=== PATIENT | female | born 1975 | race Two or more races ===

== ENCOUNTER 2018-07-07 11:09 | Emergency (ER) | payer BC ==
[2018-07-07 11:15] VITALS: BP 127/88; PULSE 86; TEMP 98; BMI 26.1
[2018-07-07] MEDS ORDERED: METOCLOPRAMIDE HCL INJECTION 10 MG/2 ML VIAL IVPUSH STA (11:22)
[2018-07-07] MEDS ORDERED: SODIUM CHLORIDE 1,000 ML IV ONE (11:22)
--- NOTE | 2018-07-07 11:29 | PDOC ---
History of Present Illness - General History Source: Patient Exam Limitations: No Limitations - History of Present Illness Initial Comments: 43 yo F w a pmh of migraines and kidney stones presents to the ER with a right sided headache which has been ongoing for the past 4 days. She states it feels like her typical migraines but is worse than usual. She states she experienced her classic visual aura of some blurry vision before the migraine started as well as some mild tinnitus before the migraine began. Usually the migraines go away after she takes sumatriptan and amytryptline but this time the migraine has persisted to the point where it is bothering her too much so she came to the ED to be evaluated. She reports this feels the same way all her migraines do in character it is just a bit worse than her usual migraine. She syas the headache was not worst in onset and was not associated with any floaters or a curtain falling over her visual field. She also endorses occasional nausea and one episode of NBNB vomitus on Sunday. She denies any weakness, numbness, tingling, chills, fevers, infections, current blurry vision, neck pain, chest pain, SOB, difficulty breathing, back pain, abdominal pain, dysuria, frequency, urgency, vertigo, or arm/leg swelling. PCP: Elke Ramírez Neurologist: Mario Garcia PSH: Cholecystectomy, lithotripsy, tubal ligation Allergies: Shellfish Social Hx: Denies smoking, drinking, or other substance usage. <Marquise Westbrook - Last Filed: 07/07/18 19:36> <Katherine Acuna - Last Filed: 07/10/18 09:46> - General Chief Complaint: Migraine Headache Stated Complaint: MIGRAINE Time Seen by Provider: 07/07/18 11:10 Past History - Past Medical History COPD: No Other medical history: MIGRAINE - Suicide/Smoking/Psychosocial Hx Smoking History: Never smoked Hx Alcohol Use: No Drug/Substance Use Hx: No <Marquise Westbrook - Last Filed: 07/07/18 19:36> <Katherine Acuna - Last Filed: 07/10/18 09:46> - Past Medical History Allergies/Adverse Reactions: Allergies Allergy/AdvReac Type Severity Reaction Status Date / Time No Known Allergies Allergy Verified 07/07/18 11:10 Home Medications: Ambulatory Orders Amitriptyline HCl [Elavil -] 10 mg PO HS 07/07/18 Metoclopramide HCl [Reglan] 10 mg PO TID PRN 7 Days #12 tablet 07/07/18 Sumatriptan 20 mg NS ASDIR 07/07/18 Review of Systems - Review of Systems Able to Perform ROS?: Yes Comments:: CONSTITUTIONAL: Absent: fever, no chills, no fatigue EYES: Present: Visual changes ENT: Absent: ear pain, no sore throat CARDIOVASCULAR: Absent: chest pain, no palpitations RESPIRATORY: Absent: cough, no SOB GI: Present: Nausea, vomiting Absent: abdominal pain, no constipation, no diarrhea GENITOURINARY: Absent: dysuria, no frequency, no hematuria MUSKULOSKELETAL: Absent: back pain, no arthralgia, no myalgia SKIN: Absent: rash NEURO: Present: headache <Marquise Westbrook - Last Filed: 07/07/18 19:36> *Physical Exam - Vital Signs Last Vital Signs Temp Pulse Resp BP Pulse Ox 98.0 F 86 16 127/88 100 07/07/18 11:10 07/07/18 11:10 07/07/18 11:10 07/07/18 11:10 07/07/18 11:10 - Physical Exam Comments: GENERAL: Well developed, well nourished. Awake and alert. No acute distress. HEENT: Normocephalic, atraumatic. PERRLA, EOMI. No conjunctival pallor. Sclera are non- icteric. Moist mucous membranes. Oropharynx is clear. NECK: Supple. Full ROM. No thyromegaly. No lymphadenopathy. CARDIOVASCULAR: Regular rate and rhythm. No murmurs, rubs, or gallops. Distal pulses are 2+ and symmetric. PULMONARY: No evidence of respiratory distress. Lungs clear to auscultation bilaterally. No wheezing, rales or rhonchi. ABDOMINAL: Soft. Non-tender. Non-distended. No rebound or guarding. Normoactive bowel sounds. MUSCULOSKELETAL Normal range of motion at all joints. No bony deformities or tenderness. No CVA tenderness. EXTREMITIES: No cyanosis. No clubbing. No edema. No calf tenderness. SKIN: Warm and dry. Normal capillary refill. No rashes. No jaundice. NEUROLOGICAL: Alert, awake, appropriate. Cranial nerves 2-12 intact. In creased pain with sensation on the right side of her face throughout all branches of the trigeminal nerve. No sensation deficits. No deficits to light touch in the upper extremities and lower extremities. No motor deficits in the in face, upper extremities and lower extremities. Normal speech. Gait is normal without ataxia. PSYCHIATRIC: Cooperative. Good eye contact. Appropriate mood and affect. <Marquise Westbrook - Last Filed: 07/07/18 19:36> - Vital Signs Last Vital Signs Temp Pulse Resp BP Pulse Ox 98.0 F 86 16 127/88 100 07/07/18 11:10 07/07/18 11:10 07/07/18 11:10 07/07/18 11:10 07/07/18 11:10 <Katherine Acuna - Last Filed: 07/10/18 09:46> Moderate Sedation - Procedure Monitoring Vital Signs: Procedure Monitoring Vital Signs Temperature 98.0 F 07/07/18 11:10 Pulse Rate 86 07/07/18 11:10 Respiratory Rate 16 07/07/18 11:10 Blood Pressure 127/88 07/07/18 11:10 O2 Sat by Pulse Oximetry (%) 100 07/07/18 11:10 <Marquise Westbrook - Last Filed: 07/07/18 19:36> - Procedure Monitoring Vital Signs: Procedure Monitoring Vital Signs Temperature 98.0 F 07/07/18 11:10 Pulse Rate 86 07/07/18 11:10 Respiratory Rate 16 07/07/18 11:10 Blood Pressure 127/88 07/07/18 11:10 O2 Sat by Pulse Oximetry (%) 100 07/07/18 11:10 <Katherine Acuna - Last Filed: 07/10/18 09:46> ED Treatment Course - LABORATORY CBC & Chemistry Diagram: 07/07/18 11:38 07/07/18 11:38 <Marquise Westbrook - Last Filed: 07/07/18 19:36> - LABORATORY CBC & Chemistry Diagram: 07/07/18 11:38 07/07/18 11:38 - ADDITIONAL ORDERS Additional order review: 07/07/18 11:38 RBC 4.65 MCV 85.7 MCHC 32.8 RDW 12.4 MPV 8.1 Neutrophils % 70.5 Lymphocytes % 23.5 Monocytes % 4.8 Eosinophils % 0.9 Basophils % 0.3 - Medications Given in the ED: ED Medications Discontinued Medications Generic Name Dose Route Start Last Admin Trade Name Cristhian PRN Reason Stop Dose Admin Dexamethasone 10 mg 07/07/18 12:11 07/07/18 12:26 Decadron - PO 07/07/18 12:12 10 mg ONCE ONE Administration Diphenhydramine HCl 25 mg 07/07/18 11:23 07/07/18 11:51 Benadryl Injection - IVPUSH 07/07/18 11:24 25 mg ONCE ONE Administration Sodium Chloride 1,000 mls @ 1,000 mls/hr 07/07/18 11:22 07/07/18 11:51 Normal Saline - IV 07/07/18 12:21 1,000 mls/hr .Q1H ONE Administration Ketorolac Tromethamine 30 mg 07/07/18 12:07 07/07/18 12:26 Toradol Injection - IVPUSH 07/07/18 12:08 30 mg ONCE ONE Administration Metoclopramide HCl 10 mg 07/07/18 11:22 07/07/18 11:51 Reglan Injection - IVPUSH 07/07/18 11:23 10 mg ONCE STA Administration <Katherine Acuna - Last Filed: 07/10/18 09:46> Medical Decision Making - Medical Decision Making 43 yo F w a pmh of migraines and kidney stones presents to the ER with a right sided headache which has been ongoing for the past 4 days. She states it feels like her typical migraines but is worse than usual. She states she experienced her classic visual aura of some blurry vision before the migraine started as well as some mild tinnitus before the migraine began. Usually the migraines go away after she takes sumatriptan and amytryptline but this time the migraine has persisted to the point where it is bothering her too much so she came to the ED to be evaluated. She reports this feels the same way all her migraines do in character it is just a bit worse than her usual migraine. She syas the headache was not worst in onset and was not associated with any floaters or a curtain falling over her visual field. She also endorses occasional nausea and one episode of NBNB vomitus on Sunday. VS: WNL DDx IBNLT: Headache - likely migraine, cluster vs tension, CVA/TIA, SAH, Brain bleed, dehydration, electrolyte abnormality, Idiopathic intracranial HTN, vitamin A toxicity. Plan: Cbc, Cmp, EKG, IV hydration, UA, HCG, Reglan, benadryl, Toradol, Dex, re- assess. Labs unremarkable, mild blood in the urine possibly 2/2 kidney stones, negative urine HCG and no signs of infections. Patient feels better after IV hydration and analgesia and requests discharge. Will send her home with PCP and Neuro Fu. <Marquise Westbrook - Last Filed: 07/07/18 19:36> *DC/Admit/Observation/Transfer - Discharge Dispostion Decision to Admit order: No <Marquise Westbrook - Last Filed: 07/07/18 19:36> <Katherine Acuna - Last Filed: 07/10/18 09:46> Diagnosis at time of Disposition: Headache Qualifiers: Headache type: unspecified Headache chronicity pattern: acute headache Intractability: not intractable Qualified Code(s): R51 - Headache - Discharge Dispostion Disposition: HOME Condition at time of disposition: Stable - Prescriptions Prescriptions: Metoclopramide HCl [Reglan] 10 mg PO TID PRN 7 Days #12 tablet PRN Reason: Headache - Referrals Referrals: Elke Ramírez MD [Primary Care Provider] - Mario Garcia MD [Non Staff, Medical] - - Patient Instructions Printed Discharge Instructions: Migraine Headaches (Alternative Therapy), Migraine -- Adult Additional Instructions: You came into the ER with a headache. We believe you were experiencing a bad migraine. We gave you some meds and IV hydration which made you feel much better. We are sending some Reglan to your pharmacy. Please make sure to go and pick it up. Please call your neurologist in the next 24 to 48 hours to schedule a follow up appointment to make sure your migraines are being well controlled. Please also call up your primary care doctor to schedule an appointment and make sure you are getting better and being taken care of. Come back to the ER if your pain worsens, you experience nausea, vomiting, a fever or any other new or worsening concerns. Thank you for coming to the [facility]. We hope you feel better soon! Print Language: GREENLANDIC - Post Discharge Activity
[2018-07-07] MEDS ORDERED: METOCLOPRAMIDE HCL INJECTION 10 MG/2 ML VIAL ONE (11:41)
[2018-07-07] MEDS ORDERED: KETOROLAC TROMETHAMINE 30 MG/1 ML VIAL IVPUSH ONE (12:07)
[2018-07-07] MEDS ORDERED: DEXAMETHASONE 4 MG TABLET (FP) PO ONE (12:11)
[2018-07-07 12:18] LABS: ALBUMIN 4.1 g/dl (3.4-5.0); ALK PHOS 86 U/L (45-117); ANION GAP 12 MMOL/L (8-16); BILIRUBIN,TOTAL 0.6 mg/dl (0.2-1); BLOOD UREA NITROGEN 14 mg/dl (7-18); CALCIUM 9.3 mg/dl (8.5-10); CHLORIDE 104 mmol/L (98-107); CO2 23 mmol/L (21-32); CREATININE 0.9 mg/dl (0.55-1.3); GLUCOSE,RANDOM 86 mg/dl (74-106); POTASSIUM 3.8 mmol/L (3.5-5.1); SGOT/AST 18 U/L (15-37); SGPT/ALT 13 U/L (13-61); SODIUM 139 mmol/L (136-145); TOT PROT 7.3 g/dl (6.4-8.2)
[2018-07-07] MEDS ORDERED: DEXAMETHASONE 4 MG TABLET (FP) ONE (12:20)
[2018-07-07] MEDS ORDERED: KETOROLAC TROMETHAMINE 30 MG/1 ML VIAL ONE (12:20)
[2018-07-07 12:22] LABS: BASO % 0.3 % (0-2.0); EOS % 0.9 % (0-4.5); HEMATOCRIT 39.8 % (32.4-45.2); HEMOGLOBIN 13.1 GM/dl (10.7-15.3); LYMPH % 23.5 % (8-40); MCH 28.1 pg (25.7-33.7); MCHC 32.8 g/dl (32.0-36.0); MEAN CELL VOLUME 85.7 fl (80-96); MEAN PLT VOLUME 8.1 fl (7.5-11.1); MONO % 4.8 % (3.8-10.2); NEUT % 70.5 % (42.8-82.8); PLATELET COUNT 368 K/MM3 (134-434); RBC 4.65 M/mm3 (3.60-5.2); RDW 12.4 % (11.6-15.6); WHITE BLOOD COUNT 7.4 K/mm3 (4.0-10.8)
[2018-07-07 12:36] LABS: PH,URINE 5.5 (4.5-8); URINE APPEARANCE SL CLOUDY; URINE BILIRUBIN NEGATIVE (NEGATIVE); URINE COLOR YELLOW; URINE GLUCOSE (UA) NEGATIVE (NEGATIVE); URINE KETONE NEGATIVE (NEGATIVE); URINE LEUK ESTERASE NEGATIVE (NEGATIVE); URINE NITRITE NEGATIVE (NEGATIVE); URINE PROTEIN TRACE (NEGATIVE); URINE UROBILINOGEN 0.2 (0.2-1.0)
[2018-07-07 12:37] LABS: EPI CELLS 1+ /HPF; URINE WBC 0-2 (0-5)
--- NOTE | 2018-07-07 12:37 | EKG ---
Test Reason : Blood Pressure : / mmHG Vent. Rate : 069 BPM Atrial Rate : 069 BPM P-R Int : 132 ms QRS Dur : 070 ms QT Int : 428 ms P-R-T Axes : 043 006 033 degrees QTc Int : 458 ms NORMAL SINUS RHYTHM NORMAL ECG NO PREVIOUS ECGS AVAILABLE Confirmed by IMANI OVIEDO MD ([id number]) on 07/07/2018 12:37:35 PM Referred By: JER Confirmed By:IMANI OVIEDO MD
[2018-07-07 12:38] LABS: URINE BACTERIA 1+ /hpf (NEGATIVE)
--- NOTE | 2018-07-07 13:20 | PDOC ---
Attending Attestation - Resident Resident Name: Marquise Westbrook - ED Attending Attestation I have performed the following: I have examined & evaluated the patient, The case was reviewed & discussed with the resident, I agree w/resident's findings & plan - HPI HPI: 07/07/18 13:17 43 yo F w a pmh of migraines and kidney stones presents to the ER with a right sided headache which has been ongoing for the past 4 days, typical of her migraines which she gets once a month. associated with nausea and vomiting, photosensitivity and blurry vision. no paresthesias, weakness. no neck stiffness , fevers or chills, difficulty walking or speech. took sumatriptan yesterday, without relief denies stressors or triggers. denies trauma or recent infection/respiratory sx.. has a neurologist appt 07/19/18 - Physicial Exam PE: 07/07/18 13:18 Alert, oriented to person time and place. CN II-XII grossly intact. Strength prox and distally 5/5 throughout. Sensation grossly intact to light touch. PAULA x4. No cerebellar signs, no nystagmus. Speech clear. gait stable RRR, CTAB. abdomen soft, NTND. WWP, normal skin color for ethnicity. no peripheral edema. - Medical Decision Making 07/07/18 13:19 See HPI for details Vital signs reviewed, wnl. Prior notes reviewed, including admissions, discharges and consultations. laboratory results and imaging reviewed, basic labs and lytes wnl, neg preg test. UA_neg for infection, small blood unclear etiology, no abdominal sx. EKG normal sinus rhythm, no interval abnormalities, narrow QRS, ST and T wave segments and morphology normal. Nonspecific T wave abnormalities ED course: IVF, reglan, benadryl, toradol and dexamethasone( prevent recurrence ) with effect. no neuro abnormalities or deficits, doubt SAH or intra cranial abnormality. no AMS or sz or infectious etiology. doubt meningitis, without sx. headache much improved, able to ambulate, no other complaints reglan prn for DURAND/nausea - neuro followup with Dr Mario Ladd as scheduled Pt to be discharged in stable condition. Patient and family made aware of impression and plan, return precautions discussed (including but not limited to worsening pain or symptoms), fevers, or signs of infection, chest pain, respiratory distress, inability to tolerate oral intake, dehydration, syncope, or neurologic changes). Follow up with PMD and/or neuro specialist as recommended, follow up information provided, take medications as instructed for duration of time. continue with supportive care, avoid triggers and precipitants. Patient does not suffer from an acute life-threatening medical condition at this time she is safe for outpatient follow-up. 07/07/18 13:51
== END 2018-07-07 14:18 | disposition home or self-care (01) ==
LOC: FER 11:09
PROC: 3E033GC Introduction of Other Therapeutic Substance into Peripheral Vein, Percutaneous Approach (ICD-10-PCS; principal; 2018-07-07)
PROC: 3E0333Z Introduction of Anti-inflammatory into Peripheral Vein, Percutaneous Approach (ICD-10-PCS; 2018-07-07)
PROC: 3E0337Z Introduction of Electrolytic and Water Balance Substance into Peripheral Vein, Percutaneous Approach (ICD-10-PCS; 2018-07-07)
DX: R51 Headache (principal)
CPT/HCPCS: 36415; 80053; 81003; 81015; 84703; 85025; 93005; 99283-25; J7030

== ENCOUNTER 2018-08-24 09:20 | Emergency (ER) | payer BC ==
[2018-08-24 09:35] VITALS: TEMP 98.5; BMI 26.1
[2018-08-24] MEDS ORDERED: NAPROXEN 375 MG TABLET (FP) PO ONE (09:36)
[2018-08-24] MEDS ORDERED: NAPROXEN 375 MG TABLET (FP) ONE (09:37)
[2018-08-24 09:43] VITALS: BP 136/96; PULSE 72
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
== END 2018-08-24 09:54 | disposition home or self-care (01) ==
LOC: SUPCPDRO 09:20 → FER 09:20
DX: S16.1XXA Strain of muscle, fascia and tendon at neck level, initial encounter (principal); S46.912A Strain of unspecified muscle, fascia and tendon at shoulder and upper arm level, left arm, initial encounter; V43.52XA Car driver injured in collision with other type car in traffic accident, initial encounter; Y93.89 Activity, other specified; Y92.410 Unspecified street and highway as the place of occurrence of the external cause
CPT/HCPCS: 99282-25

== ENCOUNTER 2021-04-05 17:10 | Inpatient (IN) | payer BC ==
[2021-04-05 17:58] LABS: BASO % 2.6 % (0-2.0); EOS % 0.1 % (0-4.5); LYMPH % 8.5 % (8-40); MCH 27.8 pg (25.7-33.7); MCHC 32.6 g/dl (32.0-36.0); MEAN CELL VOLUME 85.3 fl (80-96); MEAN PLT VOLUME 8.1 fl (7.5-11.1); MONO % 4.4 % (3.8-10.2); NEUT % 84.4 % (42.8-82.8); PLATELET COUNT 346 10^3/uL (134-434); RBC 4.69 M/mm3 (3.60-5.2); RDW 12.6 % (11.6-15.6)
[2021-04-05 18:15] LABS: ACTIVATED PTT 25.5 SECONDS (25.2-36.5)
[2021-04-05 18:18] LABS: ALBUMIN 4.3 g/dl (3.4-5.0); ALK PHOS 81 U/L (45-117); ANION GAP 11 MMOL/L (8-16); BILIRUBIN,TOTAL 0.7 mg/dl (0.2-1); CALCIUM 9.1 mg/dl (8.5-10); CHLORIDE 103 mmol/L (98-107); CO2 21 mmol/L (21-32); CREATININE 0.8 mg/dl (0.55-1.3); GLUCOSE,RANDOM 128 mg/dl (74-106); MAGNESIUM 1.9 mg/dL (1.8-2.4); PHOSPHOROUS 2.9 mg/dl (2.5-4.9); SGOT/AST 15 U/L (15-37); SGPT/ALT 13 U/L (13-61); SODIUM 135 mmol/L (136-145); TOT PROT 7.6 g/dl (6.4-8.2)
[2021-04-05 18:19] LABS: INR 1.23 (0.82-1.09); PROTHROMBIN TIME (PATIENT) 13.6 SEC (10.2-13.0)
[2021-04-05 19:12] LABS: VENOUS BASE EXCESS -8.4 mmol/L (-2-2); VENOUS O2 SATURATION 98.3 % (70-80); VENOUS PCO2 36.9 mmHg (38-52); VENOUS PH 7.291 (7.310-7.410)
[2021-04-05] MEDS ORDERED: SODIUM CHLORIDE 1,000 ML IV ONE (20:12)
[2021-04-05 23:08] LABS: URINE APPEARANCE CLEAR; URINE BILIRUBIN NEGATIVE (NEGATIVE); URINE COLOR YELLOW; URINE GLUCOSE (UA) NEGATIVE (NEGATIVE); URINE KETONE 2+ (NEGATIVE); URINE LEUK ESTERASE NEGATIVE (NEGATIVE); URINE NITRITE NEGATIVE (NEGATIVE); URINE PROTEIN NEGATIVE (NEGATIVE); URINE UROBILINOGEN 0.2 mg/dL (0.2-1.0)
[2021-04-05 23:18] LABS: URINE BENZODIAZEPINES NEGATIVE (NEGATIVE)
[2021-04-05 23:19] LABS: COCAINE, UR NEGATIVE (NEGATIVE); METHADONE, UR NEGATIVE (NEGATIVE); OPIATES, URI NEGATIVE (NEGATIVE); PHENCYCLIDINE,URINE NEGATIVE (NEGATIVE); URINE BARBITURATES NEGATIVE (NEGATIVE)
[2021-04-05 23:22] LABS: URINE AMPHETAMINES NEGATIVE (NEGATIVE)
[2021-04-06] MEDS: MUPIROCIN 2% TOPICAL OINTMENT FOR DECOLONIZATION NS SCH ×3 (00:37→21:55)
[2021-04-06] MEDS: CHLORHEXIDINE GLUCONATE 4% CLEANSER FOR DECOLONIZATION TP SCH ×2 (00:37→21:55)
[2021-04-06 07:08] LABS: HEMATOCRIT 37.5 % (32.4-45.2); HEMOGLOBIN 12.6 GM/dL (10.7-15.3); MCH 28.9 pg (25.7-33.7); MCHC 33.7 g/dl (32.0-36.0); MEAN CELL VOLUME 85.7 fl (80-96); MEAN PLT VOLUME 7.5 fl (7.5-11.1); PLATELET COUNT 296 10^3/uL (134-434); RBC 4.38 M/mm3 (3.60-5.2); RDW 13.2 % (11.6-15.6); WHITE BLOOD COUNT 14.5 K/mm3 (4.0-10.0)
[2021-04-06 07:52] LABS: ALBUMIN 3.6 g/dl (3.4-5.0); BLOOD UREA NITROGEN 13.9 mg/dL (7-18); CALCIUM 8.4 mg/dL (8.5-10.1)
[2021-04-06 07:55] LABS: CREATININE 0.8 mg/dL (0.55-1.3); PHOSPHOROUS 3.4 mg/dL (2.5-4.9)
[2021-04-06 07:56] LABS: BILIRUBIN,TOTAL 0.6 mg/dL (0.2-1)
[2021-04-06 07:57] LABS: TOT PROT 7.1 g/dl (6.4-8.2)
[2021-04-06] MEDS ORDERED: PT OWN MED DRAWER 7, Y5N ONE (10:01)
[2021-04-06] MEDS: ENOXAPARIN NA (PORCINE) 40 MG/0.4 ML DISP.SYRIN SQ SCH (10:12)
[2021-04-06] MEDS: DEXTROSE 5%-0.45% SALINE 1,000 ML IV SCH (13:30)
[2021-04-06 18:02] LABS: ARTERIAL BLD GAS O2 SATURATION 97.8 % (95-98); ARTERIAL BLOOD GAS BASE EXCESS -2.1 mmol/L (-2-2); ARTERIAL BLOOD GAS PO2 100.8 mmHg (80-100); ARTERIAL BLOOD GAS pH 7.432 (7.350-7.450)
[2021-04-06 18:03] LABS: ALLENS TEST POSITIVE
[2021-04-07] MEDS: DEXTROSE 5%-0.45% SALINE 1,000 ML IV SCH ×3 (05:00→13:18)
[2021-04-07] MEDS: ENOXAPARIN NA (PORCINE) 40 MG/0.4 ML DISP.SYRIN SQ SCH (09:26)
[2021-04-07] MEDS: MUPIROCIN 2% TOPICAL OINTMENT FOR DECOLONIZATION NS SCH (09:29)
[2021-04-07 10:52] LABS: BASO % 0.2 % (0-2.0); EOS % 0.1 % (0-4.5); HEMATOCRIT 33.9 % (32.4-45.2); HEMOGLOBIN 11.5 GM/dL (10.7-15.3); LYMPH % 7.3 % (8-40); MCH 28.4 pg (25.7-33.7); MCHC 33.8 g/dl (32.0-36.0); MEAN CELL VOLUME 83.9 fl (80-96); MEAN PLT VOLUME 7.3 fl (7.5-11.1); MONO % 5.2 % (3.8-10.2); NEUT % 87.2 % (42.8-82.8); PLATELET COUNT 291 10^3/uL (134-434); RBC 4.04 M/mm3 (3.60-5.2); RDW 13.4 % (11.6-15.6); WHITE BLOOD COUNT 11.5 K/mm3 (4.0-10.0)
[2021-04-07 11:13] LABS: ALBUMIN 3.1 g/dl (3.4-5.0); BLOOD UREA NITROGEN 10.2 mg/dL (7-18); CALCIUM 8.3 mg/dL (8.5-10.1); MAGNESIUM 2.1 mg/dL (1.8-2.4)
[2021-04-07 11:16] LABS: CREATININE 0.8 mg/dL (0.55-1.3); PHOSPHOROUS 1.4 mg/dL (2.5-4.9)
[2021-04-07 11:18] LABS: BILIRUBIN,TOTAL 0.6 mg/dL (0.2-1); TOT PROT 6.6 g/dl (6.4-8.2)
[2021-04-07] MEDS ORDERED: POTASSIUM PHOSPHATE 30 MM in DEXTROSE 5%-WATER - 500 ML IVPB ONE (13:03)
[2021-04-07] MEDS ORDERED: POTASSIUM PHOSPHATE IVPB SCH (13:04)
[2021-04-07] MEDS ORDERED: [UNRECOGNIZED DRUG - OTHER] IVPB SCH (13:04)
[2021-04-07] MEDS ORDERED: DEXTROSE IVPB SCH (13:04)
[2021-04-07] MEDS ORDERED: KCL 10 MEQ IVPB 10 MEQ/100 ML INFUS.BAG IVPB SCH (13:15)
[2021-04-07] MEDS ORDERED: POTASSIUM PHOSPHATE 30 MM in DEXTROSE 5%-WATER - 250 ML IVPB ONE (14:00)
[2021-04-07] MEDS ORDERED: PT OWN MED DRAWER 7, Y5N ONE (14:16)
[2021-04-07 16:32] VITALS: BMI 24.8
[2021-04-08] MEDS: DEXTROSE 5%-0.45% SALINE 1,000 ML IV SCH ×2 (06:50→17:09)
[2021-04-08 09:54] LABS: HEMATOCRIT 32.6 % (32.4-45.2); HEMOGLOBIN 11.4 GM/dL (10.7-15.3); MCH 29.4 pg (25.7-33.7); MCHC 35.1 g/dl (32.0-36.0); MEAN CELL VOLUME 83.6 fl (80-96); MEAN PLT VOLUME 8.1 fl (7.5-11.1); PLATELET COUNT 315 10^3/uL (134-434); RDW 13.6 % (11.6-15.6); WHITE BLOOD COUNT 10.6 K/mm3 (4.0-10.0)
[2021-04-08] MEDS ORDERED: POTASSIUM CHLORIDE TABS 20 MEQ TABLET.ER (FP) PO SCH (10:00)
[2021-04-08] MEDS: ENOXAPARIN NA (PORCINE) 40 MG/0.4 ML DISP.SYRIN SQ SCH (10:02)
[2021-04-08 10:14] LABS: CALCIUM 8.2 mg/dL (8.5-10.1)
[2021-04-08 10:18] LABS: PHOSPHOROUS 2.3 mg/dL (2.5-4.9)
[2021-04-08 10:28] LABS: CREATININE 0.8 mg/dL (0.55-1.3)
[2021-04-08] MEDS ORDERED: AMPICILLIN NA/SULBACTAM NA 3 GM in SODIUM CHLORIDE 100 ML IVPB SCH (15:30)
[2021-04-08] MEDS ORDERED: SODIUM CHLORIDE 100 ML IVPB ONE (18:26)
[2021-04-08] MEDS ORDERED: AMPICILLIN NA/SULBACTAM NA 3 GM VIAL ONE (18:26)
[2021-04-08] MEDS: AMPICILLIN NA/SULBACTAM NA 3 GM in SODIUM CHLORIDE 100 ML IVPB SCH (18:28)
[2021-04-09] MEDS ORDERED: AMPICILLIN NA/SULBACTAM NA 3 GM VIAL ONE ×2 (01:26→08:37)
[2021-04-09] MEDS ORDERED: SODIUM CHLORIDE 100 ML IVPB ONE ×2 (01:26→08:38)
[2021-04-09] MEDS: AMPICILLIN NA/SULBACTAM NA 3 GM in SODIUM CHLORIDE 100 ML IVPB SCH ×3 (02:36→14:33)
[2021-04-09] MEDS: DEXTROSE 5%-0.45% SALINE 1,000 ML IV SCH (08:35)
[2021-04-09] MEDS: ENOXAPARIN NA (PORCINE) 40 MG/0.4 ML DISP.SYRIN SQ SCH (09:16)
[2021-04-09 18:20] VITALS: BP 128/84; PULSE 91; TEMP 98.4
== END 2021-04-09 18:36 | disposition home or self-care (01) | DRG 917 ==
LOC: FER 17:10 → JICU 21:56 → J5S 04-07 17:45
PROVIDERS: ADMIT Internal Medicine Pulmonary Disease; ATTEND Internal Medicine
DX: T43.012A Poisoning by tricyclic antidepressants, intentional self-harm, initial encounter (principal); G92.9 Unspecified toxic encephalopathy; J69.0 Pneumonitis due to inhalation of food and vomit; E87.2 Acidosis; R41.82 Altered mental status, unspecified; F41.8 Other specified anxiety disorders; T14.91XA Suicide attempt, initial encounter; G43.909 Migraine, unspecified, not intractable, without status migrainosus; R53.83 Other fatigue; Y92.89 Other specified places as the place of occurrence of the external cause; G62.9 Polyneuropathy, unspecified; R94.31 Abnormal electrocardiogram [ECG] [EKG]; R25.1 Tremor, unspecified
CPT/HCPCS: 36415; 36600; 70450-TC; 71045-TC-FY; 80048; 80053; 80307; 81003; 82803; 83735; 84100; 84702; 84703; 85025; 85027; 85610; 85730; 93005; 93010; 97116-GP; 97162-GP; 99285-25; C9803; U0003; U0005